=== PATIENT | male | born 2000 | race Caucasian/White ===

== ENCOUNTER 2023-05-05 19:51 | Emergency (ER) | payer BC, OTHER ==
[~2023-05-05] VITALS: Ht 177.8 cm; Wt 80.6 kg
[2023-05-05] MEDS ORDERED: NS IV 1000 ML 1,000 ML IV STA (20:04)
--- NOTE | 2023-05-05 20:09 | ED General ---
General Stated Complaint: DEHYDRATED Source of Information: Patient History of Present Illness Date Seen by Provider: May 05, 2023 Time Seen by Provider: 19:55 Initial Comments 23-year-old male presenting by private vehicle with complaints of passing out this evening. He states that he was at a comedy show today. He is been drinking several beers throughout the day but had not really ate or drank anything other than beer. He denies having any nausea or vomiting and no diarrhea. There is no pain with urination. No fever or chills. He was started feeling dizzy and lightheaded and had to lay down and felt like he kept passing out. He states that he still feels a little lightheaded now but doing a little better since he had been drinking some water. He denies any chronic medical problems and does not take any medications and no allergies to medicines. Timing/Duration: 1-3 Hours Severity: Moderate Modifying Factors: worse with Movement Associated Systoms: No Chest Pain, No Cough, No Diaphoresis, No Fever/Chills, No Headaches, No Loss of Appetite; Malaise; No Nausea/Vomiting, No Rash, No Seizure, No Shortness of Air; Syncope, Weakness Allergies and Home Medications Allergies Coded Allergies: No Known Drug Allergies (Unverified , 05/05/23) Patient Home Medication List Home Medication List Reviewed: Yes Review of Systems Review of Systems Constitutional: No chills; dizziness; No fever; malaise, weakness EENTM: no symptoms reported Respiratory: no symptoms reported Cardiovascular: no symptoms reported Gastrointestinal: No diarrhea, No nausea, No vomiting Genitourinary: No dysuria Musculoskeletal: no symptoms reported Skin: no symptoms reported Psychiatric/Neurological: See HPI Past [id number] Hx Patient Social History Tobacco Use?: No Alcohol Use?: Yes Alcohol type: Beer Physical Exam Vital Signs Vital Signs - First Documented 05/05/23 19:54 Temp 36.3 Pulse 96 Resp 18 B/P (MAP) 125/83 (97) Pulse Ox 99 O2 Delivery Room Air Capillary Refill : Height, Weight, BMI Height: '" Weight: lbs. oz. 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 Norm as Tested Skin: Normal Color, Warm/Dry Progress/Results/Core Measures Suspected Sepsis SIRS Temperature: Pulse: Respiratory Rate: Laboratory Tests 05/05/23 20:04: White Blood Count 9.8 Blood Pressure / Mean: Laboratory Tests 05/05/23 20:04: Creatinine 1.20, Platelet Count 264, Total Bilirubin 0.9 Results/Orders Lab Results Laboratory Tests Test 05/05/23 20:04 05/05/23 20:05 Range/Units White Blood Count 9.8 4.3-11.0 10^3/uL Red Blood Count 5.60 H 4.30-5.52 10^6/uL Hemoglobin 16.8 13.3-17.7 g/dL Hematocrit 50 40-54 % Mean Corpuscular Volume 88 80-99 fL Mean Corpuscular Hemoglobin 30 25-34 pg Mean Corpuscular Hemoglobin Concent 34 32-36 g/dL Red Cell Distribution Width 11.9 10.0-14.5 % Platelet Count 264 130-400 10^3/uL Mean Platelet Volume 9.2 9.0-12.2 fL Immature Granulocyte % (Auto) 0 % Neutrophils (%) (Auto) 52 42-75 % Lymphocytes (%) (Auto) 33 12-44 % Monocytes (%) (Auto) 10 0-12 % Eosinophils (%) (Auto) 3 0-10 % Basophils (%) (Auto) 1 0-10 % Neutrophils # (Auto) 5.1 1.8-7.8 10^3/uL Lymphocytes # (Auto) 3.3 1.0-4.0 10^3/uL Monocytes # (Auto) 1.0 0.0-1.0 10^3/uL Eosinophils # (Auto) 0.3 0.0-0.3 10^3/uL Basophils # (Auto) 0.1 0.0-0.1 10^3/uL Immature Granulocyte # (Auto) 0.0 0.0-0.1 10^3/uL Sodium Level 139 135-145 MMOL/L Potassium Level 3.3 L 3.6-5.0 MMOL/L Chloride Level 103 98-107 MMOL/L Carbon Dioxide Level 23 21-32 MMOL/L Anion Gap 13 5-14 MMOL/L Blood Urea Nitrogen 9 7-18 MG/DL Creatinine 1.20 0.60-1.30 MG/DL Estimat Glomerular Filtration Rate 87 BUN/Creatinine Ratio 8 Glucose Level 118 H 70-105 MG/DL Calcium Level 9.6 8.5-10.1 MG/DL Corrected Calcium 8.5-10.1 MG/DL Total Bilirubin 0.9 0.1-1.0 MG/DL Aspartate Amino Transf (AST/SGOT) 16 5-34 U/L Alanine Aminotransferase (ALT/SGPT) 9 0-55 U/L Alkaline Phosphatase 69 40-136 U/L Total Protein 7.0 6.4-8.2 GM/DL Albumin 4.6 H 3.2-4.5 GM/DL Lipase 27 8-78 U/L Glucometer 112 H 70-110 MG/DL My Orders Orders - JAYNA DOWNS MD Accucheck Stat ONCE (05/05/23 20:04) Comprehensive Metabolic Panel (05/05/23 20:04) Lipase (05/05/23 20:04) Ua Culture If Indicated (05/05/23 20:04) Ed Iv/Invasive Line Start (05/05/23 20:04) Cbc With Automated Diff (05/05/23 20:04) Ns Iv 1000 Ml (Ns Iv 1000 Ml) (05/05/23 20:04) Vital Signs/I&O 05/05/23 05/05/23 19:54 20:46 Temp 36.3 Pulse 96 86 Resp 18 16 B/P (MAP) 125/83 (97) 141/86 Pulse Ox 99 99 O2 Delivery Room Air Capillary Refill : Progress Note #1: Progress Note Potential diagnosis of dehydration, alcohol intoxication, hypoglycemia, electrolyte imbalance. Establish peripheral IV access and send labs for complete blood count, comprehensive metabolic profile, lipase. Urinalysis to help look at hydration. Administer normal saline 1 L IV fluid bolus for hydration and allow patient to keep drinking fluids as well. Progress Note #2: Time: 20:31 Progress Note Complete blood count did not show elevated white blood cell count. He was not anemic with a hemoglobin of 16.8. Comprehensive metabolic profile did not show any acute electrolyte abnormalities. He is Accu-Chek was 112. Encourage fluids and rest and keep drinking electrolyte drinks of water. Avoid alcohol and heat over the next 2 days. Departure Impression Primary Impression: Dehydration Additional Impression: Alcohol intoxication Qualified Codes: F10.920 - Alcohol use, unspecified with intoxication, uncomplicated Disposition: 01 HOME, SELF-CARE Condition: Stable Departure-Patient Inst. Decision time for Depature: 20:34 Referrals: SELFBEATRIZ MD (PCP/Family) Primary Care Physician Patient Instructions: Dehydration, Adult ED, Alcohol Intoxication ED Add. Discharge Instructions: Keep sipping on water and electrolyte drinks to stay hydrated. Try staying out of the heat and avoid drinking alcohol for at least the next 24 to 48 hours. Try to eat balanced meals and get plenty of rest. JAYNA DOWNS MD May 05, 2023 20:09
[2023-05-05 20:10] LABS: BASOPHILS # (AUTO) 0.1 10^3/uL (0.0-0.1); BASOPHILS % (AUTO) 1 % (0-10); EOSINOPHILS # (AUTO) 0.3 10^3/uL (0.0-0.3); EOSINOPHILS % (AUTO) 3 % (0-10); HEMATOCRIT 50 % (40-54); HEMOGLOBIN 16.8 g/dL (13.3-17.7); LYMPHOCYTES # (AUTO) 3.3 10^3/uL (1.0-4.0); LYMPHOCYTES % (AUTO) 33 % (12-44); MEAN CORPUSCULAR HEMOGLOBIN 30 pg (25-34); MEAN CORPUSCULAR HGB CONC 34 g/dL (32-36); MEAN CORPUSCULAR VOLUME 88 fL (80-99); MEAN PLATELET VOLUME 9.2 fL (9.0-12.2); MONOCYTES % (AUTO) 10 % (0-12); NEUTROPHILS # (AUTO) 5.1 10^3/uL (1.8-7.8); NEUTROPHILS % (AUTO) 52 % (42-75); PLATELET COUNT 264 10^3/uL (130-400); WHITE BLOOD COUNT 9.8 10^3/uL (4.3-11.0)
[2023-05-05 20:26] LABS: ALANINE AMINOTRANSFERASE 9 U/L (0-55); ALBUMIN 4.6 GM/DL (3.2-4.5); ALKALINE PHOSPHATASE 69 U/L (40-136); BILIRUBIN,TOTAL 0.9 MG/DL (0.1-1.0); BUN/CREATININE RATIO 8; CALCIUM 9.6 MG/DL (8.5-10.1); CARBON DIOXIDE 23 MMOL/L (21-32); CHLORIDE 103 MMOL/L (98-107); GFR ESTIMATED 87; GLUCOSE 118 MG/DL (70-105); LIPASE 27 U/L (8-78); POTASSIUM 3.3 MMOL/L (3.6-5.0); SODIUM 139 MMOL/L (135-145)
[2023-05-05 20:46] VITALS: BP 141/86
== END 2023-05-05 20:48 | disposition home or self-care (01) ==
LOC: ER FS 19:54
DX: E86.0 Dehydration (principal); F10.129 Alcohol abuse with intoxication, unspecified; Z28.310 Unvaccinated for COVID-19
CPT/HCPCS: 36415; 80053; 82947; 83690; 85025